=== PATIENT | female | born 1990 | race Caucasian/White ===

== ENCOUNTER 2018-02-22 14:52 | Inpatient (IN) | payer MEDICAID ==
[~2018-02-22] VITALS: Ht 152.4 cm; Wt 89.8 kg
[2018-02-22 14:59] VITALS: BP 135/99
--- NOTE | 2018-02-22 15:05 | NUR ---
PT AMBULATES TO BED 6
--- NOTE | 2018-02-22 15:10 | NUR ---
BIB REFERRED BY DR GIRALDO WITH C/O EPIGASTRIC PAIN RADIATING TO MID BACK X 1 WK WITH VOMITING; HX; GALLSTONES. SKIN IS PINK/WARM/DRY; AAOX4 WITH EVEN AND STEADY GAIT; LUNGS CLEAR BL; HR EVEN AND REGULAR; PT DENIES ANY FEVER, CP, SOB, OR COUGH AT THIS TIME; PATIENT STATES PAIN OF 8/10 AT THIS TIME. PATIENT POSITIONED FOR COMFORT; HOB ELEVATED; BEDRAILS UP X2; BED DOWN. ER MD MADE AWARE OF PT STATUS.
--- NOTE | 2018-02-22 15:10 | NUR ---
Note undone in EDM - 02/22/18 at 1559 by [email or web address] BIB REFERRED BY DR GIRALDO WITH C/O EPIGASTRIC PAIN RADIATING TO MID BACK X 1 WK WITH VOMITING; HX; GALSTONE.SKIN IS PINK/WARM/DRY; AAOX4 WITH EVEN AND STEADY GAIT; LUNGS CLEAR BL; HR EVEN AND REGULAR; PT DENIES ANY FEVER, CP, SOB, OR COUGH AT THIS TIME; PATIENT STATES PAIN OF 8/10 AT THIS TIME; VSS; PATIENT POSITIONED FOR COMFORT; HOB ELEVATED; BEDRAILS UP X2; BED DOWN. ER MADE AWARE OF PT STATUS.
[2018-02-22] MEDS ORDERED: KETOROLAC 30 MG/ML VIAL IVP ONE (15:15)
[2018-02-22 15:34] LABS: APPEARANCE,URINE CLEAR (CLEAR); BILIRUBIN,URINE NEGATIVE (NEGATIVE); BLOOD, URINE TRACE-L (NEGATIVE); COLOR,URINE YELLOW (YELLOW); LEUKOCYTE ESTERASE ,URINE NEGATIVE (NEGATIVE); NITRITE, URINE NEGATIVE (NEGATIVE); UGLUCOSE NEGATIVE (NEGATIVE)
[2018-02-22 15:35] LABS: BASOPHILS % (AUTO) 0.4 % (0.0-2.0); EOSINOPHILS # (AUTO) 0.2 K/uL (0-0.4); EOSINOPHILS % (AUTO) 1.7 % (0.0-4.0); HEMATOCRIT 41.1 % (36-48); HEMOGLOBIN 13.4 g/dL (12.0-16.0); LYMPHOCYTES % (AUTO) 29.4 % (20.5-51.1); MEAN CORPUSCULAR HEMOGLOBIN 30 pg (27-31); MEAN CORPUSCULAR HGB CONC 33 g/dL (33-37); MEAN CORPUSCULAR VOLUME 90.7 fL (80-94); MONOCYTES # (AUTO) 0.5 K/uL (0.8-1.0); MONOCYTES % (AUTO) 4.9 % (1.7-9.3); NEUTROPHILS # (AUTO) 6.4 K/uL (1.8-7.7); NEUTROPHILS % (AUTO) 63.6 % (42.2-75.2); PLATELET COUNT (AUTO) 292 K/uL (140-450); RED BLOOD CELL COUNT(AUTO) 4.53 MIL/uL (4.20-5.40); WHITE BLOOD COUNT (AUTO) 10.1 K/uL (4.8-10.8)
[2018-02-22 15:38] LABS: RBC,URINE 0-5 (RARE) /HPF (0-5); WBC,URINE NONE SEEN /HPF (0-5)
[2018-02-22 15:42] LABS: ANION GAP 2.7 (8-16); CREATININE 0.7 mg/dL (0.6-1.3); POTASSIUM 3.7 mmol/L (3.5-5.1)
[2018-02-22 15:49] LABS: ALBUMIN 3.9 g/dL (3.4-5.0); TOTAL BILIRUBIN 0.3 mg/dL (0.0-1.0)
--- NOTE | 2018-02-22 15:52 | NUR ---
Patient being evaluated by physician at bedside.
--- NOTE | 2018-02-22 16:05 | NUR ---
US AT BEDSIDE
[2018-02-22] MEDS ORDERED: DOCUSATE SODIUM 100 MG GELCAP PO PRN (16:40)
[2018-02-22] MEDS ORDERED: ZOLPIDEM 5 MG TAB PO PRN (16:40)
[2018-02-22] MEDS ORDERED: ONDANSETRON 4 MG/2 ML VIAL IM/IVP PRN (16:40)
[2018-02-22] MEDS ORDERED: LORazepam 2 MG/ML VIAL IM/IVP PRN (16:40)
[2018-02-22] MEDS ORDERED: ACETAMINOPHEN 325 MG TAB PO PRN (16:40)
[2018-02-22] MEDS ORDERED: HYDROcodone/APAP 5/325 MG 1 TAB TAB PO PRN (16:40)
[2018-02-22 17:20] LABS: BARBITURATE, URINE NEG. ng/ml (NEG <=200); BENZODIAZEPINE, URINE NEG. ng/mL (NEG <=200); CANNABINOID, URINE NEG. ng/mL (NEG <=50); COCAINE, URINE NEG. ng/mL (NEG <=300); OPIATE, URINE NEG. ng/mL (NEG <=2000); PHENCYCLIDINE SCREEN,URINE NEG. ng/mL (NEG <=25)
--- NOTE | 2018-02-22 17:20 | NUR ---
PT TAKEN TO FLOOR BY SARAH WHITAKER AND EMT MADELEINE
[2018-02-22 17:24] LABS: MAGNESIUM 1.8 mg/dL (1.8-2.4); PHOSPHORUS 3.8 mg/dL (2.5-4.9); THYROID STIMULATING HORMONE 2.56 uIU/mL (0.34-3.74)
--- NOTE | 2018-02-22 17:25 | NUR ---
Patient will be admitted to care of DR ALMONTE . Admited to Med/Surg. Will go to room 105 A . Belongings list completed. Report to CLAUDIA SMITH.
[2018-02-22 17:30] VITALS: BP 118/76
[2018-02-22 17:30] LABS: PROTHROMBIN TIME 9.9 secs (10.8-13.4)
--- NOTE | 2018-02-22 17:30 | NUR ---
Admitted from ED, with chief complaint of RUQ PAIN, N&V SINCE 4 DAYS AGO. NO SOB NOTED. NO C/O PAIN AT THIS TIME. IV TO RT AC PATENT AND INTACT. CHEST CLEAR. ABDOMEN SOFT, BOWEL SOUNDS PRESENT. NO EDEMA NOTED. PT IS A 28 y/o ,Female, Cooperative,oriented to call light, bed, phone,television, bathroom, smoking policy,visiting hours, procedures, ID bracelet on. Belongings list checked. INSTRUCTED PT TO CALL FOR ASSISTANCE, CALL LIGHT WITHIN REACH. PT VERBALIZED UNDERSTANDING.
[2018-02-22] MEDS: DEXT 5% / NACL 0.45% 1,000 ML IV SCH (17:53)
--- NOTE | 2018-02-22 18:00 | NUR ---
NPO MAINTAINED, PT VERBALIZED UNDERSTANDING.
--- NOTE | 2018-02-22 19:00 | NUR ---
RECEIVED REPORT AT BEDSIDE FROM CLAUDIA SMITH DAYSHIFT NURSE FOR CONTINUITY OF CARE, PT IN STABLE CONDITION.
--- NOTE | 2018-02-22 19:00 | NUR ---
PT AWAKE TALKING TO AT THE BEDSIDE. NO SOB NOTED. NO C/O PAIN AT THIS TIME. NPO MAINTAINED. WILL ENDORSE TO NEXT SHIFT NURSE FOR CONTINUITY OF CARE.
[2018-02-22 20:00] VITALS: BP 112/56
--- NOTE | 2018-02-22 20:00 | NUR ---
PT IN LOW BED WITH SIDE RAILS UP X2 D5 AND 1/2 N/S RUNNING AT 120MLS/HR. V/S FOLLOWS T 98.8 P 70 R 18 B/P 112/56 02 98 WITH R/A. PT REMINDED ABOUT NPO STATUS, PT REQUEST ICE CHIPS AND PLAN OF ACTION, DR BROWN, RESIDENT DOCTOR, CONSULTED, AWAITING CONSULT FOR SURGERY WITH DR. GIRALDO AND RESIDENT ALLOWED PT TO CONSUME ICE CHIPS.
--- NOTE | 2018-02-22 21:00 | NUR ---
PT IN BED AOX4 NO S/S OF PAIN OR DISTRESS NOTED LUNGS CLEAR, BOWEL SOUNDS HEARD ALL 4 QUADS AND PT SAID THAT SHE HAD A BM THIS MORNING. IV SITE ON R AC 20 G RUNNING D5 AND 1/2 NS AT 120MLS/HR. BED LOW AND SIDE RAILS UP X 2.
[2018-02-23] VITALS: BP 110/50
--- NOTE | 2018-02-23 | NUR ---
PT ASLEEP IN LOW BED WITH SIDE RAILS UP X 2 .
[2018-02-23] MEDS: DEXT 5% / NACL 0.45% 1,000 ML IV SCH ×3 (00:58→17:38)
--- NOTE | 2018-02-23 01:00 | NUR ---
PT IN BED SLEEPING BUT AROUSABLE TO NAME, V/S FOLLOWS T 97.7 P 67 R 16 B/P 113/68 02 98 WITH R/AIR.
--- NOTE | 2018-02-23 01:02 | NUR ---
PT IN BED WITH SIDE RAILS UP X2 IV RUNNING D51/2 NS AT 120 IV SITE PATENT WITH NO S/S OF INFILTRATION. PT DENIES PAIN , NAUSEA AND VOMITING CALL MARTIN IN REACH AND V/S FOLLOWS T 99.0 P 68 R 18 B/P 110/50 02 94% WITH R/A.
--- NOTE | 2018-02-23 02:10 | NUR ---
PT C/O 8/10 PAIN AND IN ABDOMEN AND IS REQUESTING PRN MORPHINE.
--- NOTE | 2018-02-23 02:15 | NUR ---
PT REQUEST MORPHINE PRN FOR PAIN IN ABD OF 12/25. PT GIVEN PRN IVP MORPHINE.
--- NOTE | 2018-02-23 05:00 | NUR ---
PT ASLEEPIN IN BED NO S/S OF PAIN OR DISTRESS NOTED.
[2018-02-23 05:55] LABS: BASOPHILS % (AUTO) 0.3 % (0.0-2.0); EOSINOPHILS # (AUTO) 0.2 K/uL (0-0.4); EOSINOPHILS % (AUTO) 2.7 % (0.0-4.0); HEMATOCRIT 37.5 % (36-48); HEMOGLOBIN 12.2 g/dL (12.0-16.0); LYMPHOCYTES # (AUTO) 2.9 K/uL (2.5-16.5); LYMPHOCYTES % (AUTO) 38.8 % (20.5-51.1); MEAN CORPUSCULAR HEMOGLOBIN 29 pg (27-31); MEAN CORPUSCULAR HGB CONC 33 g/dL (33-37); MEAN CORPUSCULAR VOLUME 90.1 fL (80-94); MONOCYTES # (AUTO) 0.5 K/uL (0.8-1.0); MONOCYTES % (AUTO) 6.8 % (1.7-9.3); NEUTROPHILS # (AUTO) 3.8 K/uL (1.8-7.7); NEUTROPHILS % (AUTO) 51.4 % (42.2-75.2); PLATELET COUNT (AUTO) 256 K/uL (140-450); RED BLOOD CELL COUNT(AUTO) 4.16 MIL/uL (4.20-5.40); RED CELL DISTRIBUTION WIDTH 13.9 % (11.6-13.7); WHITE BLOOD COUNT (AUTO) 7.5 K/uL (4.8-10.8)
[2018-02-23 06:13] LABS: CREATININE 0.6 mg/dL (0.6-1.3)
[2018-02-23 06:23] LABS: ANION GAP 6.8 (8-16); POTASSIUM 3.8 mmol/L (3.5-5.1)
[2018-02-23 06:26] LABS: CHOL/HDL RATIO 2.9 (1-4.5)
[2018-02-23 07:36] LABS: T4 (THYROXINE) 8.4 ug/dL (4.5-12.0)
--- NOTE | 2018-02-23 07:49 | NUR ---
ENDORSED CARE TO IJEOMA RN DAYSHIFT NURSE AT BEDSIDE FOR CONTINUITY OF CARE, PT IN STABLE CONDITION.
--- NOTE | 2018-02-23 07:50 | NUR ---
RECEIVED REPORT FROM SENIOR MASTER SCHEDULER NURSE. PATIENT LYING DOWN IN BED SLEEPING, AROUSABLE BY VOICE. NO DISTRESS NOTED. DENIES ANY PAIN AT THIS TIME. AAOX4, CALM, COOPERATIVE, SKIN COLOR APPROPRIATE TO ETHNICITY, WARM TO TOUCH. SKIN IS INTACT. ABDOMEN SOFT. LUNGS CTA ON ALL LOBES. RESPIRATIONS EVEN, UNLABORED, ON ROOM AIR. IV SITE INTACT, PATENT, AND INFUSING IVF PER MD ORDERS. REVIEWED PLAN OF CARE WITH PATIENT. PATIENT VERBALIZED UNDERSTANDING. SAFETY MEASURES IN PLACE, CALL LIGHT WITHIN REACH, WILL CONTINUE TO MONITOR.
[2018-02-23 08:00] VITALS: BP 93/52
--- NOTE | 2018-02-23 08:48 | NUR ---
PATIENT HAS BEEN SCREENED AND CATEGORIZED HIGH NUTRITION RISK. PATIENT WILL BE SEEN WITHIN 1-2 DAYS OF ADMISSION. 02/23/18 02/24/[address]
--- NOTE | 2018-02-23 11:21 | NUR ---
PATIENT LYING DOWN IN BED PLAYING ON HER PHONE. NO DISTRESS NOTED. DENIES ANY PAIN. CONDITION UNCHANGED. WILL CONTINUE TO MONITOR.
--- NOTE | 2018-02-23 12:20 | NUR ---
PATIENT LYING DOWN IN BED SLEEPING, AROUSABLE BY VOICE. NO DISTRESS NOTED. DENIES ANY PAIN. CONDITION UNCHANGED. WILL CONTINUE TO MONITOR.
--- NOTE | 2018-02-23 14:00 | NUR ---
OR NURSES AT BEDSIDE READY TO TAKE PATIENT FOR CHOLECYSTECTOMY. WILL CONTINUE TO MONITOR WHEN PATIENT RETURNS.
--- NOTE | 2018-02-23 14:14 | NUR ---
02/23/18 RD INITIAL ASSESSMENT COMPLETED PLEASE REFER TO NUTRITION ASSESSMENT UNDER CARE ACTIVITY FOR ESTIMATED NUTRITIONAL NEEDS. 1. CONTINUE NPO TOLERATED 2. WHEN PATIENT IS MEDICALLY STABLE CONSIDER ADVANCING TO FULL LIQUIDS, FOLLOWED BY A BLAND DIET TOLERATED. 3. RD TO FOLLOW-UP 5-7 DAYS, LOW RISK YANELI TERESA RD
[2018-02-23] MEDS ORDERED: ceFAZolin 1,000 MG VIAL ONE (14:22)
[2018-02-23] MEDS ORDERED: DESFLURANE 240 ML BTL INH ONE (14:23)
[2018-02-23] MEDS ORDERED: DEXAMETHASONE 4 MG/ML VIAL ONE (14:23)
[2018-02-23] MEDS ORDERED: PROPOFOL 200 MG/20 ML VIAL IV ONE (14:23)
[2018-02-23] MEDS ORDERED: NEOSTIGMINE 1:1000 10 MG/10 ML VIAL ONE (14:23)
[2018-02-23] MEDS ORDERED: KETOROLAC 30 MG/ML VIAL ONE (14:23)
[2018-02-23] MEDS ORDERED: LIDOCAINE 2% 100 MG/5 ML SYR IVP ONE (14:23)
[2018-02-23] MEDS ORDERED: ROCURONIUM 50 MG/5 ML VIAL IV ONE (14:23)
[2018-02-23] MEDS ORDERED: SUCCINYLCHOLINE CHLORIDE 200 MG/10 ML VIAL IVP ONE (14:23)
[2018-02-23] MEDS ORDERED: GLYCOPYRROLATE 0.2 MG/ML VIAL ONE (14:23)
[2018-02-23] MEDS ORDERED: ONDANSETRON 4 MG/2 ML VIAL ONE (14:23)
[2018-02-23] MEDS ORDERED: BUPIVACAINE-MPF/EPI 0.25% 30 ML VIAL INJ ONE (14:31)
[2018-02-23] MEDS ORDERED: MIDAZOLAM 2 MG/2 ML VIAL ONE (14:32)
[2018-02-23] MEDS ORDERED: fentaNYL 0.05 MG/ML VIAL ONE (14:33)
[2018-02-23] MEDS ORDERED: ONDANSETRON 4 MG/2 ML VIAL IVP PRN (14:55)
[2018-02-23] MEDS: HYDROmorphone 1 MG/ML AMP IVP PRN ×4 (16:15→16:45)
[2018-02-23] MEDS ORDERED: HYDROmorphone PFS 2 MG/ML SYR ONE (16:19)
[2018-02-23 16:55] VITALS: BP 113/65
--- NOTE | 2018-02-23 16:55 | NUR ---
PATIENT BACK ON UNIT FROM PACU. PATIENT IN STABLE CONDITION. V/S STABLE. COMPLAINS OF PAIN ON ABDOMINAL SURGICAL AREA, DR. CARDENAS AT BEDSIDE ASSESSING PATIENT. MD TO INPUT ORDERS FOR PAIN MEDS. IVF RECONNECTED TO PATIENT AND RUNNING PER MD ORDERS. RESPIRATIONS EVEN, UNLABORED, ON ROOM AIR. SAFETY MEASURES IN PLACE, CALL LIGHT WITHIN REACH. WILL CONTINUE TO MONITOR.
--- NOTE | 2018-02-23 17:07 | NUR ---
pt unable to perform IS at this time
[2018-02-23] MEDS ORDERED: KETOROLAC 30 MG/ML VIAL IVP SCH (17:30)
[2018-02-23] MEDS: CYCLOBENZAPRINE 10 MG TAB PO SCH (17:33)
--- NOTE | 2018-02-23 19:45 | NUR ---
GAVE REPORT TO HYDROELECTRIC PLANT MECHANICAL ENGINEER NURSE FOR CONTINUITY OF CARE. PATIENT IN STABLE CONDITION.
--- NOTE | 2018-02-23 19:45 | NUR ---
RECEIVED REPORT FROM DAYSHIFT NURSE FOR CONTINUITY OF CARE, PT IN STABLE CONDITION.
[2018-02-23 20:00] VITALS: BP 125/85
--- NOTE | 2018-02-23 20:00 | NUR ---
PT AMBULATED TO BATHROOM AND BACK WITH ASSISTANCE OF FAMILY MEMBER.
[2018-02-23] MEDS: MORPHINE SULFATE 4 MG/ML SYR IVP PRN (21:24)
--- NOTE | 2018-02-23 21:24 | NUR ---
PT NOTED IN BED WITH FAMILY AT BEDSIDE CRYING IN PAIN, C/O OF 9/10 PAIN AND REQUESTING PAIN MEDICATION FOR HER ABDOMEN. PT MEDICATED WITH PRN MORPHINE. V/S FOLLOWS T 98.0 P 66 R 20 B/P 125/85 02 99 PT ALSO GIVEN MEDICATIONS DUE (SMITHECONE).
[2018-02-23] MEDS: SIMETHICONE 80 MG TAB.CHEW PO SCH (21:37)
[2018-02-23] MEDS ORDERED: LORazepam 0.5 MG TAB PO PRN (21:55)
[2018-02-23] MEDS ORDERED: MORPHINE SULFATE 4 MG/ML SYR IVP SCH (22:30)
--- NOTE | 2018-02-23 22:30 | NUR ---
PT C/O 10/10 PAIN IN CHEST PT CRYING , MEDS HAD SOME POSITIVE EFFECT BUT PT IS C/O OF MORE PIAN AND CHEST PAIN WELL. DR. BROWN CALLED AND SHE WENT TO EVALUATE PT. DR. BROWN ORDERED AN EKG AND TROPININ LEVEL. WELL EXTRA MORPHINE AND AN ATIVAN.
--- NOTE | 2018-02-23 22:45 | NUR ---
EKG DONE BY RESPIRATORY AT BEDSIDE RESULT NSR
--- NOTE | 2018-02-23 23:00 | NUR ---
LAB DRAW AT BEDSIDE FOR TROPONIN LEVEL.
[2018-02-24] MEDS: DEXT 5% / NACL 0.45% 1,000 ML IV SCH (02:05)
[2018-02-24] MEDS: MORPHINE SULFATE 4 MG/ML SYR IVP PRN (02:07)
--- NOTE | 2018-02-24 03:00 | NUR ---
PT SLEEPING IN LOW BED SIDE RAILS UP X2 CALL MARTIN IN REACH.
[2018-02-24 05:51] LABS: EOSINOPHILS % (AUTO) 0.1 % (0.0-4.0); HEMATOCRIT 35.5 % (36-48); HEMOGLOBIN 11.6 g/dL (12.0-16.0); LYMPHOCYTES # (AUTO) 1.8 K/uL (2.5-16.5); LYMPHOCYTES % (AUTO) 14.5 % (20.5-51.1); MEAN CORPUSCULAR HEMOGLOBIN 29 pg (27-31); MEAN CORPUSCULAR HGB CONC 33 g/dL (33-37); MEAN CORPUSCULAR VOLUME 89.7 fL (80-94); MONOCYTES # (AUTO) 0.7 K/uL (0.8-1.0); MONOCYTES % (AUTO) 5.5 % (1.7-9.3); NEUTROPHILS # (AUTO) 10.1 K/uL (1.8-7.7); NEUTROPHILS % (AUTO) 79.9 % (42.2-75.2); PLATELET COUNT (AUTO) 264 K/uL (140-450); RED BLOOD CELL COUNT(AUTO) 3.96 MIL/uL (4.20-5.40); RED CELL DISTRIBUTION WIDTH 13.7 % (11.6-13.7); WHITE BLOOD COUNT (AUTO) 12.6 K/uL (4.8-10.8)
[2018-02-24 06:25] LABS: ALBUMIN 2.9 g/dL (3.4-5.0); ANION GAP 12.9 (8-16); CARBON DIOXIDE 25.2 mmol/L (21-32); CREATININE 0.6 mg/dL (0.6-1.3); POTASSIUM 4.1 mmol/L (3.5-5.1); TOTAL BILIRUBIN 0.4 mg/dL (0.0-1.0)
--- NOTE | 2018-02-24 07:15 | NUR ---
REPORT GIVEN TO WALE GARNER AT BEDSIDE FOR CONTINUITY OF CARE,. PT IN STABLE CONDITION.
--- NOTE | 2018-02-24 07:20 | NUR ---
ASSUMED CONTINUITY OF CARE. NO SIGNS AND SYMPTOMS OF ACUTE DISTRESS NOTICED. INITIAL ASSESSMENT DONE. KEEP COMFORTABLE ON BED. EXPLAINED DIAGNOSIS, PLAN OF CARE, POST-OP CARE, PAIN MANAGEMENT TEACHING, USE OF CALL LIGHT/BED/TV/BATHROOM. VERBALIZED UNDERSTANDING. CALL LIGHT WITHIN REACH.
[2018-02-24 08:00] VITALS: BP 100/64
--- NOTE | 2018-02-24 08:00 | NUR ---
Patient's Plan of Care was discussed and reviewed with BOTTLE CARRIER: WALE CALDERON
[2018-02-24] MEDS ORDERED: DOCU-300 PO (08:14)
[2018-02-24] MEDS ORDERED: ACET-2869 PO (08:14)
[2018-02-24] MEDS: SIMETHICONE 80 MG TAB.CHEW PO SCH (08:28)
[2018-02-24] MEDS: CYCLOBENZAPRINE 10 MG TAB PO SCH ×2 (08:29→13:08)
--- NOTE | 2018-02-24 12:02 | NUR ---
ELENO BROWN CAME AND SPOKE TO PT. REGARDING PT. D/C INSTRUCTIONS AND TEACHING.
--- NOTE | 2018-02-24 12:45 | NUR ---
AMBULATES ON HALLWAY WITH ASSISTANCE FROM PT. . TOLERATED WELL. NO C/O PAIN. HAD STEADY GAIT AND BALANCE.
--- NOTE | 2018-02-24 14:20 | NUR ---
D/C VIA WHEELCHAIR ACCOMPANIED BY PT. . AWAKE, ALERT, AND ORIENTED X4. SPEECH CLEAR. NO C/O PAIN. NO SOB, NOTED. IN STABLE CONDITION. INFORMED CHARGE NURSE LEONCIO QUINTANILLA.
== END 2018-02-24 14:20 | disposition home or self-care (01) | DRG 263 ==
LOC: MED 14:52 → MTU 16:38
PROVIDERS: ADMIT General Practice; ATTEND General Practice
PROC: 0FT44ZZ Resection of Gallbladder, Percutaneous Endoscopic Approach (ICD-10-PCS; principal; 2018-02-23 11:15)
DX: K80.20 Calculus of gallbladder without cholecystitis without obstruction (principal); E83.51 Hypocalcemia; E66.9 Obesity, unspecified; K57.30 Diverticulosis of large intestine without perforation or abscess without bleeding; K82.8 Other specified diseases of gallbladder; Z68.39 Body mass index [BMI] 39.0-39.9, adult
CPT/HCPCS: 36415; 71045; 76705; 80048; 80053; 80305; 81001; 82374; 83036; 83690; 83735; 84100; 84134; 84436; 84443; 84484; 85025; 85610; 85730; 86886; 86900; 86901; 87081; 93005; 96374; 99285; C1887; J0330; J0690; J1100; J1170; J1885; J2001; J2250; J2270; J2405; J2704; J2710; J3010; J3490; J7030; Q0092

== ENCOUNTER 2018-03-12 13:28 | Emergency (ER) | payer MEDICAID ==
[~2018-03-12] VITALS: Ht 152.4 cm; Wt 89.5 kg
[~2018-03-12 13:28] MED LIST: DOCU-300 PO; HYDR-5122 PO
[2018-03-12 13:33] VITALS: BP 106/67
[2018-03-12] MEDS ORDERED: MORPHINE SULFATE 2 MG/ML SYR IM ONE (14:35)
[2018-03-12] MEDS ORDERED: KETOROLAC 60 MG/2 ML VIAL IM ONE (14:35)
[2018-03-12 15:51] VITALS: BP 111/82
== END 2018-03-12 15:51 | disposition home or self-care (01) ==
LOC: MED 13:28
DX: K91.5 Postcholecystectomy syndrome (principal); Z79.899 Other long term (current) drug therapy
CPT/HCPCS: 81002; 81025; 96372; 99284; J1885; J2270